=== PATIENT | male | born 2000 | race Caucasian/White ===

== ENCOUNTER 2024-02-29 15:31 | Emergency (ER) | payer OTHER, SELFPAY ==
[2024-02-29 15:36] VITALS: BP 126/70; PULSE 98; O2SAT 94
--- NOTE | 2024-02-29 15:39 | ECG_ITS ---
Test Reason : DIZZINESS Blood Pressure : / mmHG Vent. Rate : 091 BPM Atrial Rate : 091 BPM P-R Int : 178 ms QRS Dur : 104 ms QT Int : 362 ms P-R-T Axes : - 020 degrees QTc Int : 445 ms Normal sinus rhythm Incomplete right bundle branch block Borderline ECG No previous ECGs available Referred By: Pavithra Lu Electronically Signed By:KAITLIN SO
[2024-02-29 15:43] VITALS: BMI 26.6
[2024-02-29 15:52] VITALS: BP 119/67; PULSE 87; RESP 18; TEMP 36.3; O2SAT 93
[2024-02-29 16:05] LABS: MANUAL DIFF FLAG NO
[2024-02-29 16:07] LABS: Basophils Percent Auto 0.3 % (0-2); Eosinophils Absolute Auto 0.2 X10*3/uL (0.0-0.4); Eosinophils Percent Auto 1.7 % (0-4); Hematocrit 39.4 % (42.0-52.0); Hemoglobin 13.4 g/dl (14.0-18.0); Imm Gran Abs Auto 0.02 X10*3/uL (0.00-0.03); Imm Gran Pct Auto 0.2 % (0.0-0.4); Lymphocytes Absolute Auto 1.2 X10*3/uL (1.2-4.9); Lymphocytes Percent Auto 12.3 % (20-40); Mean Corpuscular Hemoglobin 29.8 pg (27.0-33.0); Mean Corpuscular Volume 87.6 fL (80.0-98.0); Mean Platelet Volume 10.8 fL (9.4-12.4); Monocytes Absolute Auto 0.9 X10*3/uL (0.1-1.2); Monocytes Percent Auto 9.2 % (2-11); Neutrophils Absolute Auto 7.7 x10*3/uL (2.0-8.3); Neutrophils Percent Auto 76.3 % (45-73); Platelet Count 245 X10*3/uL (160-400); Red Cell Distribution Width 11.9 % (11.0-16.0); White Blood Count 10.1 X10*3/uL (4.8-10.8)
[2024-02-29 16:29] LABS: Alanine Aminotransferase 14 U/L (0-40); Albumin Level 4.6 g/dL (3.5-5.0); Anion Gap 14 (12-20); Aspartate Amino Transferase 23 U/L (5-37); Blood Urea Nitrogen 17 mg/dL (9-16); Calcium 9.8 mg/dL (8.4-10.2); Carbon Dioxide 24 mmol/L (22-29); Chloride 104 mmol/L (96-108); Creatinine Clr Calc Pharmacy 96.7; Estimated Glomerular Filt Rate > 60; Glucose Random 89 mg/dL (60-115); Magnesium 3.1 mg/dL (1.6-2.6); Potassium 4.3 mmol/L (3.3-5.1); Sodium 138 mmol/L (135-145); Total Protein 7.6 g/dL (6.5-8.0)
[2024-02-29 16:37] LABS: Alkaline Phosphatase 54 U/L (39-117)
[2024-02-29 16:45] LABS: Influenza A PCR NEGATIVE (Negative); Influenza B PCR NEGATIVE (Negative); Resp Syncy Virus RNA Qual PCR NEGATIVE (Negative); SARS COV2 PCR INHOUSE NEGATIVE (Negative)
[2024-02-29 17:35] LABS: Appearance Urine Clear; Color Urine Yellow; Glucose Urine UA Negative (Negative); Leukocyte Esterase Urine Negative (Negative); Nitrite Urine Negative (Negative); Specific Gravity - Urine 1.015 (1.005-1.025); Urine Blood Negative (Negative); Urine Ketones Negative (Negative); Urine Protein Trace mg/dL (Neg-Trace)
[2024-02-29 18:00] VITALS: BP 131/66; PULSE 70; RESP 18; TEMP 36.8; O2SAT 99
[2024-02-29 19:49] VITALS: BP 128/76; PULSE 68; RESP 17; TEMP 36.7; O2SAT 98
--- NOTE | 2024-02-29 20:04 | ED_ITS ---
HPI - General Adult General Chief complaint: General Medical Stated complaint: weak and lightheaded after exertion Time Seen by Provider: 02/29/24 19:17 Source: patient, RN notes reviewed and old records reviewed Mode of arrival: EMS Limitations: no limitations History of Present Illness ED Provider: Jefry WISE narrative: This is a healthy 23-year-old male presenting for evaluation of lightheadedness, dizziness and vomiting. Patient reports that he was going through physical training for the [employer]. He reports that while sprinting he ?suddenly felt lightheaded, dizzy, my legs locked up and I had to sit down. Patient reports that he was nauseous and vomiting for about 10 minutes He reports that his lightheadedness and dizziness slowly improved over the next 2 hours The patient complains of a mild headache but otherwise feels back to his baseline He feels as though he has not been hydrating as much as usual over the last 2 days and feels he may have been dehydrated The patient states that he has never had any chest pain Related Data Allergies Allergy/AdvReac Type Severity Reaction Status Date / Time No Known Allergies Allergy Verified 02/29/24 15:44 Review of Systems 2 Constitutional: Constitutional: Denies body ache(s), Denies chills and Denies fever(s) Eyes: Eyes: Denies blurry vision ENT: Reports dizziness Cardiovascular: Cardiovascular: Denies Abdominal Distension, Denies chest pain, Reports lightheadedness, Denies palpitations, Denies dyspnea and Denies paroxysmal nocturnal dyspnea Respiratory: Respiratory: Denies dyspnea Gastrointestinal: Gastrointestinal: Denies abdominal pain, Reports nausea and Reports vomiting Integumentary/Breasts: Skin/Breast: Denies rash Neurologic: Reports dizziness Psychiatric: Psychiatric: Denies anxiety Endocrine: Endocrine: Denies palpitations PMFSH Social History Social History Alcohol intake: current Alcohol intake frequency: a few times a week Smoked in Last 30 Days: No Use of substances other than those prescribed or required for medical reasons: No Advance Directives: No Advance Directives Information Provided: No Physical Exam ED Vital Signs: Vital Signs - 24 hr 02/29/24 15:52 02/29/24 18:00 02/29/24 19:49 Temperature 97.4 F 98.2 F 98.1 F Pulse Rate 87 70 68 Respiratory Rate 18 18 17 Blood Pressure 119/67 131/66 128/76 Pulse Oximetry 93 99 98 Oxygen Delivery Method Room Air Room Air Room Air BMI result Body Mass Index 26.6 Const General: healthy appearing, comfortable, no acute distress, alert and awake Nutritional Appearance: well nourished Orientation/consciousness: patient oriented x3 HENMT Head: Yes normocephalic and Yes atraumatic Eyes Eyelids: Yes eyelids normal Conjunctivae: conjunctivae normal Sclerae: sclerae normal Corneas: corneas normal Pupils: Equal, round and reactive pupils present EOM: EOMs intact bilaterally Neck Neck: Yes full ROM Resp Effort & Inspection: normal respiratory effort, able to speak in complete sentences, no audible wheezes and not labored Auscultation: clear to auscultation bilaterally Cardio Rate: regular rate Rhythm: regular rhythm GI Inspection: No distended Palpation (GI): Soft to palpation, not firm, nontender, no guarding and not rigid Skin General skin exam: elasticity normal Neuro General: patient oriented x3 Cranial nerves: Yes Equal, round and reactive pupils present and Yes Bilaterally intact EOM present Cognition (Neuro): normal cognition Extrem Other: Moving all extremities well without any obvious deformities Course Reevaluation(s) Reevaluation #1: Given the patient's presentation that started during exertion, and the patient's incomplete right bundle branch block I discussed with cardiology who recommends the patient be seen in the office before resuming physical activity. I discussed this with the patient Time: 21:55 Medical Decision Making Medical Decision Making [facility] Narrative: Healthy 23-year-old male presents for evaluation of lightheadedness, nausea and vomiting while exercising. The patient's labs are significant for a very mild anemia, this is not significant enough to cause his symptoms. He has no active bleeding, black or bloody stool. Patient's EKG shows a normal sinus rhythm with a rate of 91 beats minute. He is found to have an incomplete right bundle branch block. No previous EKG for comparison. Given the abnormal EKG findings, lightheadedness and nausea/vomiting with exertion ordered a troponin. The patient has no risk factors for ACS Differential Diagnosis Differential Diagnoses: The differential diagnosis associated with the presentation includes ACS Lightheadedness Dizziness Congenital cardiomyopathy Viral syndrome Dehydration Consult Healthcare Provider Management of the patient was discussed with: Client Sales And Service Officer Discussed with Cardiology, Dr. Simmons Lab Data [facility] Lab Attestation statement: I reviewed the patient's lab results. 02/29/24 15:58 02/29/24 15:58 Labs: Lab Results 02/29/24 02/29/24 02/29/24 Range/Units 15:58 17:22 20:21 WBC 10.1 (4.8-10.8) X10*3/uL RBC 4.50 L (4.60-5.80) X10*6/uL Hgb 13.4 L (14.0-18.0) g/dl Hct 39.4 L (42.0-52.0) % MCV 87.6 (80.0-98.0) fL MCH 29.8 (27.0-33.0) pg MCHC 34.0 (31.0-36.0) g/dl RDW 11.9 (11.0-16.0) % Plt Count 245 (160-400) X10*3/uL MPV 10.8 (9.4-12.4) fL Immature Gran % (Auto) 0.2 (0.0-0.4) % Neut % (Auto) 76.3 H (45-73) % Lymph % (Auto) 12.3 L (20-40) % [place] % (Auto) 9.2 (2-11) % Eos % (Auto) 1.7 (0-4) % Baso % (Auto) 0.3 (0-2) % Lymph # (Auto) 1.2 (1.2-4.9) X10*3/uL [place] # (Auto) 0.9 (0.1-1.2) X10*3/uL Eos # (Auto) 0.2 (0.0-0.4) X10*3/uL Baso # (Auto) 0.0 (0.0-0.2) X10*3/uL Abs Immat Gran (auto) 0.02 (0.00-0.03) X10*3/uL Absolute Neuts (auto) 7.7 (2.0-8.3) x10*3/uL Absolute Nucleated RBC 0.000 (0.0-0.012) X10*3/uL Nucleated RBC % (auto) 0.0 (0.0-0.2) /100WBC Sodium 138 (135-145) mmol/L Potassium 4.3 (3.3-5.1) mmol/L Chloride 104 (96-108) mmol/L Carbon Dioxide 24 (22-29) mmol/L Anion Gap 14 (12-20) BUN 17 H (9-16) mg/dL Creatinine 1.11 (0.5-1.4) mg/dL Estim Creat Clear Calc 96.7 Estimated GFR > 60 Random Glucose 89 (60-115) mg/dL Calcium 9.8 (8.4-10.2) mg/dL Magnesium 3.1 H (1.6-2.6) mg/dL Total Bilirubin 1.0 (0.0-1.0) mg/dL AST 23 (5-37) U/L ALT 14 (0-40) U/L Alkaline Phosphatase 54 (39-117) U/L Troponin I High Sens < 2.7 (<3.5-35.0) ng/L Total Protein 7.6 (6.5-8.0) g/dL Albumin 4.6 (3.5-5.0) g/dL Urine Color Yellow Urine Appearance Clear Urine pH 6.0 (5.0-9.0) Ur Specific [place] 1.015 (1.005-1.025) Urine Protein Trace (Neg-Trace) mg/dL Urine Glucose (UA) Negative (Negative) mg/dL Urine Ketones Negative (Negative) mg/dL Urine Blood Negative (Negative) Urine Nitrite Negative (Negative) Ur Leukocyte Esterase Negative (Negative) Influenza Type A (PCR) NEGATIVE (Negative) Influenza Type B (PCR) NEGATIVE (Negative) RSV RNA Qual (PCR) NEGATIVE (Negative) SARS-CoV-2 RNA (RT-PCR) NEGATIVE (Negative) Independent Interpretation I performed an independent interpretation of an: EKG Discharge Plan Discharge Clinical Impression: Light-headedness, Right bundle branch block Patient Disposition: Still a Patient Instructions: Heart Block (ED), Lightheadedness (ED) Additional Instructions: Your EKG showed a slight abnormality called a right bundle branch block. For this reason, Cardiology recommends that you hold off on any physical activity until you see them in the office Call the office tomorrow to schedule a follow up appointment, you may need an echocardiogram Return for new or worsening symptoms Referrals: Nikolas Simmons MD [Physician] - (Lightheadedness with exertion, right bundle branch block) Print Language: Pashto
[2024-02-29 20:54] LABS: Troponin-I High Sensitivity < 2.7 ng/L (<3.5-35.0)
[2024-02-29 22:00] VITALS: BP 129/72; PULSE 72; RESP 18; TEMP 36.8; O2SAT 99
[2024-02-29 22:14] VITALS: BP 129/72; PULSE 72; RESP 18; TEMP 36.8; O2SAT 99
== END 2024-02-29 22:14 | disposition home or self-care (01) ==
PROVIDERS: Physician Assistant; Physician Assistant Medical; Emergency Provider Emergency Medicine
DX: R42 Dizziness and giddiness (principal); I45.10 Unspecified right bundle-branch block; R53.1 Weakness; R11.2 Nausea with vomiting, unspecified; R51.9 Headache, unspecified; Z03.818 Encounter for observation for suspected exposure to other biological agents ruled out
CPT/HCPCS: 0241U; 36415; 80053; 81003; 83735; 84484; 85025; 93005; 99284

== ENCOUNTER 2024-03-10 13:55 | Outpatient (AMB) | payer OTHER, SELFPAY ==
[2024-03-10 14:06] VITALS: BP 116/60; PULSE 76; BMI 25.8
--- NOTE | 2024-03-10 14:06 | MHC.OFFVIS ---
Vital Signs 03/10/24 14:06 Height 5 ft 7 in Weight 165 lb BMI 25.8 BP 116/60 Blood Pressure Location Lt brachial Position Sitting Pulse 76 Pulse Source Pulse Oximeter Intake Visit Reasons: Lightheaded with exertion, RT bundle branch block Allergies No Known Allergies Allergy (Verified 02/29/24 15:44) Medication List - Last Reconciled 03/10/24 by Rosaline Freitas NP No Known Home Meds HPI Comments Details: 23-year-old male presents today for a new patient visit. He presented to the emergency room on 02/29/2024 after exercising. He is in the and when he completed his exercise he felt unsteady, weak, tunnel vision. nauseous, vomited, and pre-syncopal. He felt back to normal after about two hours. It was also noted that on EKG he had a incomplete right bundle branch block. He was feeling well prior. He denies feeling these symptoms any other times. He denies any chest pains or shortness of breath. Reports a rare palpitations. Otherwise reports no personal medical history or family history of cardiac disease. REPLACED BY [facility] Medical History Incomplete right bundle branch block Family History Father High blood pressure Hereditary hemochromatosis Social History Alcohol intake: current Alcohol intake frequency: a few times a week Alcohol type: beer and hard liquor Patient Tobacco Use Status: Never used Tobacco Current occupational status: employed Current occupation: [employer] Review of Systems Const Denies weakness ENT Denies dizziness Card Denies chest pain, Denies chest pain with activity, Denies syncope, Denies rapid heart rate, Denies pedal edema, Denies edema, Denies leg edema, Denies lightheadedness, Reports palpitations, Denies dyspnea, Denies dyspnea on exertion and Denies orthopnea Resp Denies cough, Denies dyspnea and Denies dyspnea on exertion GI Denies hematochezia and Denies change in stool character Musc Denies abnormal gait, Denies muscle cramps, Denies muscle weakness, Denies numbness, Denies radiating pain into limb and Denies tingling Neuro Denies abnormal gait, Denies dizziness, Denies syncope, Denies numbness, Denies tingling and Denies weakness Endo Reports palpitations Physical Exam Vital Signs: Last Vital Signs Pulse 76 03/10/24 14:06 BP 116/60 03/10/24 14:06 BMI result Body Mass Index 25.8 Const General: healthy appearing and no acute distress Orientation/consciousness: patient oriented x3 HEENT Head: Yes normal to inspection Eyes General: appearance normal, both eyes and all related structures Neck Neck: Yes normal visual inspection Chest Chest palpation & inspection: normal inspection of the chest Resp Effort & Inspection: normal respiratory effort Auscultation: clear to auscultation bilaterally Cardio Jugular venous distension: no JVD Palpation: normal PMI Rate: regular rate Rhythm: regular rhythm Heart sounds: S1 normal heart sound present, S2 normal heart sound present, no click, no gallops, no murmurs and no rubs GI Inspection: Yes normal to inspection Palpation (GI): Soft to palpation Skin General skin exam: no rashes or lesions noted Neuro General: patient oriented x3 Extrem General: Yes normal to inspection Psych Appearance: grossly normal Assessment & Plan Assessment & Plan (1) Light-headedness: Code(s): R42 - Dizziness and giddiness Category: Medical (2) Incomplete right bundle branch block: Code(s): I45.10 - Unspecified right bundle-branch block Category: Medical Plan: On EKG. Will be followed periodically. Plan Lightheadedness along with tunnel vision, weakness, and tunnel vision. Has an occasional palpitation. HX of incomplete right bundle branch block on EKG. Denies any passing out, dizziness, or fainting. He is in the [employer] and is due to leave Mar 23. Will try to get echo and stress echo performed prior to assess for ischemia, arrhythmias on exertion, structural changes, or reproducible symptoms. ED care if needed. Follow-up upon return. Will call with results. Orders: Orders CA echo transthoracic complete Today I45.10 - Unspecified right bundle-branch block, R42 - Dizziness and giddiness CA echo stress exercise w con Today I45.10 - Unspecified right bundle-branch block, R42 - Dizziness and giddiness Coding Level of Care Code New Pt Level 4 (05964) Diagnoses Light-headedness R42 Incomplete right bundle branch block I45.10
== END 2024-03-10 14:39 | disposition home or self-care (01) ==
PROVIDERS: Visit Provider Nurse Practitioner
DX: R42 Dizziness and giddiness (principal); I45.10 Unspecified right bundle-branch block
CPT/HCPCS: 99204

== ENCOUNTER → 2024-03-10 13:55 | Outpatient (BNVA) | payer OTHER, SELFPAY | PROVIDERS: Visit Provider Nurse Practitioner | DX: I45.10 Unspecified right bundle-branch block (principal); R42 Dizziness and giddiness | CPT/HCPCS: 99202 ==